=== PATIENT | male | born 2000 | race Caucasian/White ===

== ENCOUNTER 2021-02-04 15:54 | Outpatient (REF) | payer OTHER, SELFPAY ==
[2021-02-06 10:09] LABS: Hepatitis C Ab w Rflx HCV PCR Negative (Negative); Syphilis Serology (RPR) Negative (Negative)
[2021-02-06 10:17] LABS: HIV-1/2 Ag & Ab Screen Negative (Negative)
[2021-02-06 11:46] LABS: Chlamydia Result Negative (Negative); GC Result Negative (Negative)
[2021-02-07 02:07] LABS: Chlamydia amplified RNA Negative (Negative); N gonorrhoeae amplified RNA Negative (Negative); Source THROAT
[2021-02-07 02:07] LABS: Chlamydia amplified RNA Negative (Negative); N gonorrhoeae amplified RNA Negative (Negative); Source ANAL
== END 2021-02-04 15:55 | disposition home or self-care (01) ==
LOC: NCHCN 15:54
PROVIDERS: Visit Provider Nurse Practitioner Family
DX: Z11.3 Encounter for screening for infections with a predominantly sexual mode of transmission (principal); J35.1 Hypertrophy of tonsils
CPT/HCPCS: 86803; 87389; 87491; 87591; 86592

== ENCOUNTER 2021-07-16 15:09 | Outpatient (REF) | payer OTHER, SELFPAY ==
[2021-07-17 00:30] LABS: COVID-19 RT-PCR UVMMC Result Negative (Negative)
== END 2021-07-16 15:10 | disposition home or self-care (01) ==
LOC: NCHCN 15:09
PROVIDERS: Visit Provider Nurse Practitioner Family
DX: Z20.822 Contact with and (suspected) exposure to COVID-19 (principal); J06.9 Acute upper respiratory infection, unspecified
CPT/HCPCS: U0003

== ENCOUNTER 2023-07-17 22:10 | Outpatient (REF) | payer BC, SELFPAY ==
[2023-07-17 16:20] LABS: Calculated LDL 153 mg/dL (<100); Cholesterol 210 mg/dL (<200); HDL Cholesterol 43 mg/dL (40-60); Triglyceride 74 mg/dL (<150)
[2023-07-17 22:45] LABS: Hepatitis B Surface Ag Negative (Negative)
[2023-07-17 23:14] LABS: Hepatitis C Ab w Rflx HCV PCR Negative (Negative)
[2023-07-17 23:25] LABS: HIV-1/2 Ag & Ab Screen Negative (Negative)
[2023-07-18 13:43] LABS: Chlamydia Result Negative (Negative); GC Result Negative (Negative)
[2023-07-18 13:48] LABS: Chlamydia Result Negative (Negative); GC Result Negative (Negative)
[2023-07-18 13:53] LABS: Chlamydia Result Negative (Negative); GC Result Negative (Negative)
[2023-07-21 11:46] LABS: Syphilis Serology (RPR) Negative (Negative)
== END 2023-07-17 22:11 | disposition home or self-care (01) ==
LOC: NCHCN 22:10
PROVIDERS: Family Medicine; Visit Provider Family Medicine
DX: Z72.53 High risk bisexual behavior (principal)
CPT/HCPCS: 80053; 80061; 86803; 87340; 87389; 87491; 87591; 83036; 86592

== ENCOUNTER 2023-12-14 21:14 | Outpatient (REF) | payer BC, SELFPAY ==
[2023-12-14 22:05] LABS: Anion Gap 6.9 mmol/L (3-11); BUN 11 mg/dL (7-18); CO2 29.1 mmol/L (21.0-32.0); CREATININE 0.9 mg/dL (0.70-1.30); Chloride 105 mmol/L (98-107); Estimated GFR 123.07 (mL/min/1.73m2); Glucose 77 mg/dL (74-106); Potassium 4.3 mmol/L (3.5-5.1); Sodium 141 mmol/L (136-145)
[2023-12-15 19:06] LABS: Hepatitis C Ab w Rflx HCV PCR Negative (Negative)
[2023-12-15 19:08] LABS: HIV-1/2 Ag & Ab Screen Negative (Negative)
[2023-12-16 10:46] LABS: Syphilis Serology (RPR) Negative (Negative)
[2023-12-16 12:23] LABS: Chlamydia Result Negative (Negative); GC Result Negative (Negative)
== END 2023-12-14 21:15 | disposition home or self-care (01) ==
LOC: NCHCN 21:14
PROVIDERS: Visit Provider Nurse Practitioner Family
DX: E66.9 Obesity, unspecified (principal); Z11.59 Encounter for screening for other viral diseases; Z72.53 High risk bisexual behavior
CPT/HCPCS: 80048; 86803; 87389; 87491; 87591; 86592

== ENCOUNTER 2023-12-24 18:15 | Outpatient (REF) | payer BC, SELFPAY ==
[2023-12-26 13:39] LABS: Chlamydia Result Negative (Negative); GC Result Negative (Negative)
[2023-12-26 13:40] LABS: Chlamydia Result Negative (Negative); GC Result Negative (Negative)
== END 2023-12-24 18:16 | disposition home or self-care (01) ==
LOC: NCHCN 18:15
PROVIDERS: Visit Provider Nurse Practitioner Family
DX: Z72.51 High risk heterosexual behavior (principal); Z11.3 Encounter for screening for infections with a predominantly sexual mode of transmission
CPT/HCPCS: 87491; 87591

== ENCOUNTER 2024-05-16 21:47 | Outpatient (REF) | payer BC, SELFPAY ==
[2024-05-16 22:48] LABS: Anion Gap 9.2 mmol/L (3-11); BUN 14 mg/dL (7-18); CO2 26.8 mmol/L (21.0-32.0); Calcium 8.9 mg/dL (8.5-10.1); Chloride 108 mmol/L (98-107); Estimated GFR 108.46 (mL/min/1.73m2); Glucose 102 mg/dL (74-106); Potassium 4.4 mmol/L (3.5-5.1); Sodium 144 mmol/L (136-145)
[2024-05-17 19:31] LABS: Hepatitis C Ab w Rflx HCV PCR Negative (Negative)
[2024-05-17 19:43] LABS: HIV-1/2 Ag & Ab Screen Negative (Negative)
[2024-05-18 12:08] LABS: GC Result Negative (Negative)
[2024-05-18 12:41] LABS: Chlamydia Result Negative (Negative); GC Result Negative (Negative)
[2024-05-18 13:08] LABS: Syphilis Serology (RPR) Negative (Negative)
[2024-05-18 13:37] LABS: Chlamydia Result Positive (Negative)
== END 2024-05-16 21:48 | disposition home or self-care (01) ==
LOC: NCHCN 21:47
PROVIDERS: Visit Provider Nurse Practitioner Family
DX: Z11.3 Encounter for screening for infections with a predominantly sexual mode of transmission (principal)
CPT/HCPCS: 80048; 86803; 87389; 87491; 87591; 86592

== ENCOUNTER 2024-09-26 14:51 | Outpatient (REF) | payer OTHER, SELFPAY ==
[2024-09-27 10:04] LABS: Hepatitis C Ab w Rflx HCV PCR Negative (Negative)
[2024-09-27 10:53] LABS: HIV-1/2 Ag & Ab Screen Negative (Negative)
[2024-09-27 10:55] LABS: Syphilis Serology (RPR) Negative (Negative)
[2024-09-27 11:37] LABS: Chlamydia Result Negative (Negative); GC Result Negative (Negative)
[2024-09-27 12:30] LABS: Chlamydia Result Negative (Negative); GC Result Negative (Negative)
== END 2024-09-26 14:52 | disposition home or self-care (01) ==
LOC: NCHCN 14:51
PROVIDERS: PCP Nurse Practitioner Family; Visit Provider Nurse Practitioner Family
DX: Z72.53 High risk bisexual behavior (principal); Z11.3 Encounter for screening for infections with a predominantly sexual mode of transmission
CPT/HCPCS: 86803; 87389; 87491; 87591; 86592

== ENCOUNTER 2024-12-26 15:37 | Outpatient (REF) | payer OTHER, SELFPAY ==
[2024-12-26 21:50] LABS: HCT 47.9 % (40.0-50.0); HGB 15.8 g/dL (13.5-17.5); MCH 30.5 pg (27.0-33.0); MCV 93 fL (80-95); MPV 10.2 fL (8.0-11.0); Platelet Count 255 10^3/uL (130-400); RBC 5.18 10^6/uL (4.36-5.78); RDW 12.2 % (11.8-14.1); WBC 6.86 10^3/uL (4.4-10.8)
[2024-12-26 22:07] LABS: Hemoglobin A1C 5.2 % (<5.7)
[2024-12-26 22:13] LABS: ALT 63 U/L (16-63); AST 33 U/L (15-37); Alkaline Phosphatase 79 U/L (46-116); Anion Gap 7.7 mmol/L (3-11); BUN 12 mg/dL (7-18); Bilirubin, Total 0.4 mg/dL (0.2-1.0); CO2 27.3 mmol/L (21.0-32.0); CREATININE 0.7 mg/dL (0.70-1.30); Calcium 9.1 mg/dL (8.5-10.1); Calculated LDL 144 mg/dL (<100); Chloride 103 mmol/L (98-107); Cholesterol 204 mg/dL (<200); Estimated GFR 131.95 (mL/min/1.73m2); Glucose 85 mg/dL (74-106); HDL Cholesterol 45 mg/dL (>or=40); Potassium 4.3 mmol/L (3.5-5.1); Sodium 138 mmol/L (136-145); TSH 1.05 uIU/mL (0.36-3.74); Total Protein 7.6 g/dL (6.4-8.2); Triglyceride 79 mg/dL (<150)
[2024-12-27 19:25] LABS: HIV-1/2 Ag & Ab Screen Negative (Negative)
[2024-12-27 19:28] LABS: Hepatitis C Ab w Rflx HCV PCR Negative (Negative)
[2024-12-28 12:21] LABS: Chlamydia Result Negative (Negative); GC Result Negative (Negative)
[2024-12-28 12:22] LABS: Chlamydia Result Negative (Negative); GC Result Negative (Negative)
[2024-12-28 12:25] LABS: Chlamydia Result Negative (Negative); GC Result Negative (Negative)
[2024-12-28 12:46] LABS: Syphilis Serology (RPR) Negative (Negative)
== END 2024-12-26 15:38 | disposition home or self-care (01) ==
LOC: NCHCN 15:37
PROVIDERS: PCP Nurse Practitioner Family; Visit Provider Nurse Practitioner Family
DX: Z72.53 High risk bisexual behavior (principal); Z00.00 Encounter for general adult medical examination without abnormal findings; E78.5 Hyperlipidemia, unspecified; E66.9 Obesity, unspecified; A64 Unspecified sexually transmitted disease; Z11.3 Encounter for screening for infections with a predominantly sexual mode of transmission
CPT/HCPCS: 80053; 80061; 85027; 86803; 87389; 87491; 87591; 83036; 84443; 86592

== ENCOUNTER 2025-02-03 12:17 | Outpatient (REF) | payer OTHER, SELFPAY ==
[2025-02-04 11:51] LABS: Chlamydia Result Negative (Negative); GC Result Negative (Negative)
== END 2025-02-03 12:18 | disposition home or self-care (01) ==
LOC: NCHCN 12:17
PROVIDERS: PCP Nurse Practitioner Family; Visit Provider Physician Assistant
DX: J02.0 Streptococcal pharyngitis (principal); K13.79 Other lesions of oral mucosa
CPT/HCPCS: 87491; 87591; 87070